=== PATIENT | female | born 1980 | race Caucasian/White ===

== ENCOUNTER 2018-08-27 12:14 | Inpatient (IN) | payer BC, MEDICAID ==
[2018-08-27 12:54] LABS: ABSOLUTE LYMPHOCYTES (AUTO) 1.6 10^3/uL (0.5-4.7); ABSOLUTE MONOCYTES (AUTO) 0.9 10^3/uL (0.1-1.4); ABSOLUTE NEUT (AUTO) 9.5 10^3/uL (1.7-8.2); BASOPHILS % (AUTO) 0.2 % (0-2); HEMATOCRIT 43.7 % (36.0-47.0); HEMOGLOBIN 15.2 g/dL (12.0-15.5); LYMPHOCYTES % (AUTO) 13.2 % (13-45); MEAN CORPUSCULAR HEMOGLOBIN 29.2 pg (27.0-33.4); MEAN CORPUSCULAR HGB CONC 34.8 g/dL (32.0-36.0); MEAN CORPUSCULAR VOLUME 84 fl (80-97); MONOCYTES % (AUTO) 7.5 % (3-13); PLATELET COUNT 265 10^3/uL (150-450); RED BLOOD COUNT 5.21 10^6/uL (3.72-5.28); RED CELL DISTRIBUTION WIDTH 14.4 % (11.5-14.0); SEGMENTED NEUTROPHILS % (AUTO) 79.1 % (42-78); TOTAL CELLS COUNTED % (AUTO) 100 %
[2018-08-27 13:21] LABS: ALANINE AMINOTRANSFERASE 31 U/L (9-52); ALBUMIN 4.9 g/dL (3.5-5.0); ALKALINE PHOSPHATASE 83 U/L (38-126); ANION GAP 17 (5-19); ASPARTATE AMINO TRANSFERASE 23 U/L (14-36); BILIRUBIN,DIRECT 0.3 mg/dL (0.0-0.4); BILIRUBIN,TOTAL 1.1 mg/dL (0.2-1.3); BLOOD UREA NITROGEN 13 mg/dL (7-20); CARBON DIOXIDE 22 mmol/L (22-30); CHLORIDE 99 mmol/L (98-107); GLUCOSE 85 mg/dL (75-110); POTASSIUM 3.2 mmol/L (3.6-5.0); SODIUM 138.2 mmol/L (137-145); TOTAL PROTEIN 8.4 g/dL (6.3-8.2)
[2018-08-27 13:26] LABS: ACETAMINOPHEN < 10 ug/mL (10-30); ALCOHOL < 10 mg/dL (NONE DETECTED); SALICYLATE < 1.0 mg/dL (2.0-20.0)
[2018-08-27] MEDS ORDERED: CHLORPROMAZINE HCL INJ 25 MG/1 ML AMPULE IM PRN (15:14)
[2018-08-27] MEDS ORDERED: BENZTROPINE MESYLATE INJ 2 MG/2 ML AMPULE IM SCH (15:15)
--- NOTE | 2018-08-27 15:17 | PSYCHOLOGICAL NOTE ---
Psych Note - Psych Note Date seen by psych provider: 08/27/18 Time seen by psych provider: 14:00 Psych Note: Reason for Consult: psychosis Patient arrived to [facility] ED via EMS for concerns of psychosis. Patient is randomly yelling out and cussing. Her thought processes are disorganized as evidenced by random comments that she puts together into one sentence. She is unable to carry on an organized and linear conversation. Patient is talking about "real people," "in her reality," colors, cheating, phone numbers and how every one has it in the world, notebook, codes, and a cat. Clinician spoke with patient's , Rishi, who reports the patient has no mental health history. He denies any knowledge of the patient ever having an episode like this in the previously. They have been 22 years. He continued to report that they do smoke pot however the last time he smoked pot was 12 hours ago and they shared with 2 other people and no one else is reacting in this way. He reports that she did receive 2 "blue pills" from a friend that was supposed to help sleep. He reports it is called Z MA that which purchased at [facility]. He discloses that she took the first pill at 4 PM on 08/25/2018. Her behavior started to become on that evening. He reports that she took a second pill at approximately 2 AM this morning. He states that she really started to amp up. He discloses significant concern as he is never witnessed anything like this and is scared for her. He reports the only other time she was out of his site was when she went to [place] to take a friend to the Social Security office. He reports he knows that friend does "pop pills" and is very concerned that she may have gotten something from her. All attempts at contacting that friend have been unsuccessful. Medication recommendations per [facility]'s contracted psychiatrist Dr Villa WILEY are as follows Thorazine 50mg every 6 hours as needed Cogentin 1mg daily Unspecified psychosis Impression\\plan: Patient is recommended for IVC petition. Patient is currently presenting manic with disorganized thought processes. Patient is currently in four-point restraints for her and staff safety. Patient will be reevaluated. Dr. Salguero was consulted to care management this patient; attending physicians in agreement with recommendations and disposition.
[2018-08-27] MEDS ORDERED: CHLORPROMAZINE HCL INJ 25 MG/1 ML AMPULE IM ONE (16:54)
[2018-08-27] MEDS: CHLORPROMAZINE HCL INJ 25 MG/1 ML AMPULE IM SCH ×3 (17:11→22:08)
--- NOTE | 2018-08-27 17:32 | ER Document Report ---
Entered by SITA LEO SCRIBE 08/27/18 1232 Acting as scribe for:JOSE MANUEL HYLTON MD ED Psych Disorder / Suicide - General Stated Complaint: PSYCH ISSUES Time Seen by Provider: 08/27/18 12:18 Primary Care Provider: LAURA NAVARRETE MD [Primary Care Provider] - Follow up as needed Mode of Arrival: Medic Information source: Patient Notes: 37 year old female that presents to the emergency department today with complaints of altered mental status. EMS reports that the patient has not slept in two days according to family. Family reports that the patient smokes marijuana and they suspect that she may have "gotten a bad batch". Patient was given 50mg of Benadryl IM and 5mg of haldol prior to arrival. Patient is agitated, manic, and uncooperative. - Related Data Allergies/Adverse Reactions: No Known Allergies Allergy (Unverified 04/19/11 13:13) Past Medical History - General Information source: [facility] Records - Social History Smoking Status: Former Smoker Drug Abuse: Marijuana Family History: Reviewed & Not Pertinent Psychiatric Medical History: Surgical Hx: Negative Review of Systems - Review of Systems -: Yes ROS unobtainable due to patient's medical condition - psychotic, agitated, uncooperative Physical Exam - Vital signs Vitals: Temp Pulse Resp BP Pulse Ox 98.0 F 100 16 147/74 H 100 08/27/18 13:10 08/27/18 13:10 08/27/18 13:10 08/27/18 13:10 08/27/18 13:10 - General General appearance: Other - agitated, uncooperative - HEENT Head: Normocephalic, Atraumatic Eyes: Normal Conjunctiva: Normal Extraocular movements intact: Yes - Respiratory Respiratory status: No respiratory distress Chest status: Nontender - Cardiovascular Rhythm: Tachycardia Heart sounds: Normal auscultation Murmur: No - Abdominal Inspection: Normal Distension: No distension Bowel sounds: Normal Tenderness: Nontender - Back Back: Normal, Nontender - Extremities General upper extremity: Normal inspection, Normal ROM. No: Edema General lower extremity: Normal inspection, Normal ROM. No: Edema - Neurological Neuro grossly intact: Yes Cognition: Normal Orientation: AAOx4 Livingston Coma Scale Eye Opening: Spontaneous Pastor Coma Scale Verbal: Oriented Pastor Coma Scale Motor: Obeys Commands Livingston Coma Scale Total: 15 - Psychological Associated symptoms: Agitated, Flight of ideas, Manic, Paranoid, Psychomotor agitation, Tangential speech - Skin Skin Temperature: Warm Skin Moisture: Dry Skin Color: Normal Notes: 1.5mm linear superficial laceration to right volar hands. 1.5cm medially to this there is a 1mm superficial puncture wound as well. Course - Re-evaluation Re-evalutation: 08/27/18 17:24 50 mg of Thorazine IM did not seem to have any effect at all in the patient. She was given an additional 50 mg Thorazine IM and her orders were changed to Thorazine 100 mg IM Q4 PRN. - Vital Signs Vital signs: Temp Pulse Resp BP Pulse Ox 98.0 F 100 16 147/74 H 100 08/27/18 13:10 08/27/18 13:10 08/27/18 13:10 08/27/18 13:10 08/27/18 13:10 - Laboratory Result Diagrams: 08/27/18 12:40 08/27/18 12:40 Laboratory results interpreted by me: 08/27/18 08/27/18 12:40 12:40 WBC 12.0 H RDW 14.4 H Seg Neutrophils % 79.1 H Absolute Neutrophils 9.5 H Potassium 3.2 L Total Protein 8.4 H Salicylates < 1.0 L Acetaminophen < 10 L - EKG Interpretation by Me EKG shows normal: Sinus rhythm, [place], Intervals, QRS Complexes, ST-T Waves Rate: Tachycardia - 116 Columbia/QRS: Left axis deviation Discharge - Discharge Clinical Impression: Acute hysterical psychosis Condition: Stable Disposition: PSYCH HOSP/UNIT Referrals: LAURA NAVARRETE MD [Primary Care Provider] - Follow up as needed I personally performed the services described in the documentation, reviewed and edited the documentation which was dictated to the scribe in my presence, and it accurately records my words and actions.
[2018-08-27 19:05] LABS: APPEARANCE,URINE SLIGHTLY-CLOUDY; BILIRUBIN,URINE NEGATIVE (NEGATIVE); COLOR,URINE YELLOW; GLUCOSE, URINE NEGATIVE (NEGATIVE); KETONES,URINE 80 mg/dL (NEGATIVE); LEUKOCYTE ESTERASE,URINE NEGATIVE (NEGATIVE); NITRITE,URINE NEGATIVE (NEGATIVE); PROTEIN,URINE 30 mg/dL (NEGATIVE); URINE SPECIFIC GRAVITY 1.023; UROBILINOGEN,URINE NEGATIVE mg/dL (<2.0)
[2018-08-27 19:18] LABS: URINE AMPHETAMINES SCREEN NEGATIVE; URINE BARBITURATES SCREEN NEGATIVE; URINE BENZODIAZEPINES SCREEN NEGATIVE; URINE COCAINE SCREEN NEGATIVE; URINE MARIJUANA (THC) SCREEN UNCONFIRMED POSITIVE; URINE METHADONE SCREEN NEGATIVE; URINE PHENCYCLIDINE SCREEN NEGATIVE
[2018-08-27] MEDS ORDERED: RINGERS SOLUTION,LACTATED 1,000 ML IV ONE (21:49)
[2018-08-27] MEDS ORDERED: LORAZEPAM INJ 2 MG/1 ML VIAL IV ONE (21:51)
[2018-08-27 22:37] LABS: ANION GAP 18 (5-19); BLOOD UREA NITROGEN 9 mg/dL (7-20); CALCIUM 9.8 mg/dL (8.4-10.2); CARBON DIOXIDE 20 mmol/L (22-30); CHLORIDE 101 mmol/L (98-107); GLUCOSE 92 mg/dL (75-110); SODIUM 139.1 mmol/L (137-145)
[2018-08-27 22:38] LABS: CREATINE KINASE 406 U/L (30-135)
[2018-08-27 22:54] LABS: FREE T3 4.74 pg/mL (2.77-5.27); FREE T4 (FREE THYROXINE) 1.8 ng/dL (0.78-2.19)
--- NOTE | 2018-08-27 23:00 | EKG REPORT ---
SEVERITY:- ABNORMAL ECG - SINUS TACHYCARDIA BORDERLINE LEFT AXIS DEVIATION ABNORMAL T, NON SPECIFIC : Confirmed by: Des Meza 27-Aug-2018 23:00:10
[2018-08-27 23:08] LABS: THYROID STIMULATING HORMONE 6.3 uIU/mL (0.47-4.68)
[2018-08-27] MEDS: POTASSI CL 20 MEQ/50 ML RIDER 20 MEQ/50 ML RTUPB IV SCH (23:29)
--- NOTE | 2018-08-27 23:30 | RADIOLOGY REPORT (SQ) ---
EXAM DESCRIPTION: CT HEAD WITHOUT IV CONTRAST COMPLETED DATE/TME: 08/27/2018 22:36 CLINICAL HISTORY: 37 years, Female, altered mental status COMPARISON: None. TECHNIQUE: 193 Images stored on PACS. All CT scanners at this facility use dose modulation, iterative reconstruction, and/or weight based dosing when appropriate to reduce radiation dose to as low as reasonably achievable (ALARA). [facility]: Dose Right [facility]: CareDose [facility]: Dose Right [facility]: Teradose 4D [facility]: AngleWare LIMITATIONS: None. FINDINGS: The globes are intact. The paranasal sinuses and mastoid air cells are unremarkable. No displaced or depressed skull fracture. No intra or extra-axial hemorrhage. CT is limited for evaluation of acute infarct. No CT evidence for large or territorial acute infarct. Vague area of diminished attenuation in the high right paramedian parietal region. This is isodense to CSF. This could reflect sequelae of old infarct. Other etiologies are not excluded, and follow-up with MRI may be of benefit. IMPRESSION: Nonspecific vague area of diminished attenuation in the high right parietal region. This could reflect sequelae of old vascular insult/infarct. Neoplastic etiology felt less likely. Consider follow-up with MRI. TECHNICAL DOCUMENTATION: Quality ID # 436: Final reports with documentation of one or more dose reduction techniques (e.g., Automated exposure control, adjustment of the mA and/or kV according to patient size, use of iterative reconstruction technique) copyright 2011 [employer]- All Rights Reserved
[2018-08-28] MEDS: POTASSI CL 20 MEQ/50 ML RIDER 20 MEQ/50 ML RTUPB IV SCH (00:53)
[2018-08-28] MEDS ORDERED: NORMAL SALINE 1000 ML 1,000 ML IV ONE (01:32)
[2018-08-28] MEDS ORDERED: KETAMINE HCL INJ 500 MG/10 ML VIAL IV ONE ×2 (01:44→03:10)
--- NOTE | 2018-08-28 02:46 | ER Document Report ---
Doctor's Note Notes: 08/28/18 02:42 Note: I was called to the room earlier in the evening because the patient had continued to be agitated and in four-point restraints. She had been in restraints for a number of hours in the emergency room. The story is as follows. This is a 37-year-old woman with no known psychiatric history that is reported to smoke marijuana fairly frequently. The reports are that she was having difficulty sleeping and that the neighbor had given her some unidentified pills. The patient subsequently became violent and was brought in by EMS for presumptive acute psychosis. Patient was given Thorazine during the day and placed in restraints and she required restraints most of the evening. On my evaluation, the patient is flushed, confused, agitated and appears acutely delirious. Patient's pupils are normal size and reactive to light. Her lungs are clear and her heart is rapid. She does have tachycardia anywhere between 101- 130. Patient has some bruising to the lower extremities. There is no petechial lesions or other rashes. While this can certainly be a new onset psychosis related to drug use, the concern is clearly for acute delirium. I discussed the case with poison control and they recommended sending urine out for synthetic hallucinogens. They did report that some of the synthetic nely lucinogens could last for days and could mimic acute psychosis. A CT of the head was done and it showed no acute process. There was a question of possible old infarct, the recommendation was for a follow-up MRI at some time. It does not appear that this is old finding is related to the patient's mental status change. The patient's T4 and T3 were relatively normal. Patient's CK was 404 initially and we will follow it. The patient was sedated with ketamine in order to do a spinal tap. I discussed the case with the hospitalist who is willing to admit the patient to the ICU for acute delirium and possible drug overdose.
[2018-08-28] MEDS: CHLORPROMAZINE HCL INJ 25 MG/1 ML AMPULE IM SCH (02:57)
[2018-08-28 02:59] LABS: GLUCOSE,CSF 55 mg/dL (40-70); PROTEIN,CSF 60 mg/dL (12-60)
[2018-08-28 03:20] LABS: APPEARANCE ALL TUBES CLEAR; COLOR ALL TUBES COLORLESS; CSF TUBE NUMBER 1; VOLUME TUBE 1 1.1 CC; VOLUME TUBE 2 1.1 CC; VOLUME TUBE 3 1.1 CC
[2018-08-28 03:21] LABS: CSF TOTAL VOLUME 4.3 CC
[2018-08-28 03:22] LABS: RED BLOOD CELL,CSF 45 /uL (0-10)
[2018-08-28 03:24] LABS: APPEARANCE ALL TUBES CLEAR; COLOR ALL TUBES COLORLESS; CSF TUBE NUMBER 4; WHITE BLOOD CELL,CSF 1 /uL (0-5)
[2018-08-28 03:25] LABS: CSF TOTAL VOLUME 4.3 CC; RED BLOOD CELL,CSF 1 /uL (0-10); VOLUME TUBE 1 1.1 CC; VOLUME TUBE 2 1.1 CC; VOLUME TUBE 3 1.1 CC; WHITE BLOOD CELL,CSF 0 /uL (0-5)
[2018-08-28 03:36] LABS: ABSOLUTE LYMPHOCYTES (AUTO) 1.7 10^3/uL (0.5-4.7); ABSOLUTE MONOCYTES (AUTO) 0.9 10^3/uL (0.1-1.4); ABSOLUTE NEUT (AUTO) 6.4 10^3/uL (1.7-8.2); BASOPHILS % (AUTO) 0.3 % (0-2); EOSINOPHILS % (AUTO) 0.3 % (0-6); HEMATOCRIT 38.9 % (36.0-47.0); HEMOGLOBIN 13.6 g/dL (12.0-15.5); LYMPHOCYTES % (AUTO) 18.6 % (13-45); MEAN CORPUSCULAR HEMOGLOBIN 29.8 pg (27.0-33.4); MEAN CORPUSCULAR VOLUME 85 fl (80-97); MONOCYTES % (AUTO) 10.2 % (3-13); PLATELET COUNT 222 10^3/uL (150-450); RED BLOOD COUNT 4.56 10^6/uL (3.72-5.28); RED CELL DISTRIBUTION WIDTH 14.3 % (11.5-14.0); SEGMENTED NEUTROPHILS % (AUTO) 70.6 % (42-78); TOTAL CELLS COUNTED % (AUTO) 100 %
[2018-08-28 03:39] LABS: ALANINE AMINOTRANSFERASE 29 U/L (9-52); ALBUMIN 4.1 g/dL (3.5-5.0); ALKALINE PHOSPHATASE 71 U/L (38-126); ASPARTATE AMINO TRANSFERASE 27 U/L (14-36); BILIRUBIN,DIRECT 0.2 mg/dL (0.0-0.4); BILIRUBIN,TOTAL 1.1 mg/dL (0.2-1.3); BLOOD UREA NITROGEN 9 mg/dL (7-20); CARBON DIOXIDE 22 mmol/L (22-30); CREATINE KINASE 428 U/L (30-135); GLUCOSE 81 mg/dL (75-110); POTASSIUM 3.6 mmol/L (3.6-5.0); SODIUM 141.2 mmol/L (137-145); TOTAL PROTEIN 7.2 g/dL (6.3-8.2)
[2018-08-28 03:41] LABS: ANION GAP 15 (5-19); CHLORIDE 104 mmol/L (98-107)
[2018-08-28] MEDS ORDERED: ONDANSETRON HCL INJ/PF 4 MG/2 ML SDV IV PRN (04:22)
[2018-08-28] MEDS ORDERED: GLUCAGON,HUMAN RECOMB 1 MG INJ SUBCUT PRN (04:22)
[2018-08-28] MEDS ORDERED: RINGERS SOLUTION,LACTATED 1,000 ML IV PRN (04:22)
[2018-08-28] MEDS ORDERED: DEXTROSE 40% GEL 15 GM TUBE PO PRN ×2 (04:22)
[2018-08-28] MEDS ORDERED: DEXTROSE 50%-WATER 25 GM/50 ML DISP.SYRIN IV PRN ×2 (04:22)
[2018-08-28 05:08] LABS: TROPONIN I < 0.012 ng/mL
[2018-08-28] MEDS: HEPARIN SOD (PORCINE) 5,000 UNIT/ML 1 ML SYRINGE SUBCUT SCH ×3 (05:55→21:50)
--- NOTE | 2018-08-28 06:38 | PDOC H&P ---
History of Present Illness Admission Date/PCP: 08/28/18 02:44 LAURA NAVARRETE MD Patient complains of: AMS History of Present Illness: BROOKE LOMAS is a 37 year old female who presented to the emergency room via EMS with acute altered mental status. Reports were that the patient had been feeling very tired and not sleeping well recently and was subsequently given 2 sleeping pills that were blue in color by a friend. She took her first 1 of these pills on the late afternoon of the and took her second pill on the radio interference expert of the . Following taking the second pill her pill status rapidly changed and was misinterpreted by EMS as acute psychosis initially, but was determined to be acute delirium after physician evaluation in the emergency room. Patient is delirious and unable to provide any input into her medical care. All information is obtained from the ER staff and other persons in the ER familiar with patient as well as her medical records. In the ER she was found to have no acute abnormalities on CT of the head, hypokalemia at 3.0 was noted as well as an elevated alkaline phosphatase. The remainder of her laboratory evaluation was essentially within normal limits. A lumbar puncture was performed with negative results. Due to the patient's acute delirium of unclear etiology she will be admitted for further evaluation and treatment. A specialized urine toxicology test was ordered and sent by the ER physician supervising ER portion of her care upon the recommendation of poison control. Past Medical History Cardiac Medical History: Denies: Coronary Artery Disease, Hypertension, Pulmonary Embolism, Heart Murmur Pulmonary Medical History: Denies: Asthma, Sleep Apnea, Tuberculosis EENT Medical History: Denies: Cataracts, Ears - No hearing deficits Neurological Medical History: Denies: Hemorrhagic CVA, Ischemic CVA, Seizures Endocrine Medical History: Denies: Diabetes Mellitus Type 1, Diabetes Mellitus Type 2, Hyperthyroidism, Hypothyroidism Renal/ Medical History: Denies: Chronic Kidney Disease, Nephrolithiasis Malignancy Medical History: Reports: None GI Medical History: Denies: Cirrhosis, Gastroesophageal Reflux Disease, Hepatitis, Hiatal Hernia Musculoskeltal Medical History: Denies: Arthritis, Fibromyalgia Skin Medical History: Denies: Eczema, Psoriasis Psychiatric Medical History: Reports: Substance Abuse Denies: Alcohol Dependency, Bipolar Disorder, Depression, Post Traumatic Stress Disorder, Tobacco Dependency Traumatic Medical History: Reports: None Hematology: Denies: Anemia, Bleeding Tendencies Infectious Medical History: Reports: None Past Surgical History Past Surgical History: Reports: Section - X 3, Tubal Ligation Social History Information Source: [facility] Records Lives with: Spouse/Significant other Smoking Status: Former Smoker Hx Recreational Drug Use: Yes Drugs: Marijuana Hx Prescription Drug Abuse: No - Advance Directive Resuscitation Status: Full Code Surrogate healthcare decision maker:: Spouse Family History Family History: Could not be obtained due to patient's delirium and no available medical records Parental Family History Reviewed: No Children Family History Reviewed: No Sibling(s) Family History Reviewed.: No Medication/Allergy Home Medications: Motrin 800 mg Tablet 800 mg PO Q8HP PRN 04/24/11 Percocet 5-325 mg Tablet 1 tab PO Q4HP PRN 04/24/11 Allergies/Adverse Reactions: No Known Allergies Allergy (Unverified 04/19/11 13:13) Review of Systems ROS unobtainable: Due to mental status - Acute delirium Physical Exam Vital Signs: Temp Pulse Resp BP Pulse Ox 97.6 F 108 H 15 144/80 H 100 08/27/18 22:43 08/27/18 21:30 08/28/18 03:00 08/28/18 02:36 08/28/18 03:00 Intake & Output 08/26/18 08/27/18 08/28/18 23:59 23:59 23:59 Intake Total 1000 85 Balance 1000 85 General appearance: PRESENT: disheveled, other - Delirious and obtunded secondary to sedation for lumbar puncture. Head exam: PRESENT: atraumatic, normocephalic Eye exam: PRESENT: conjunctiva pink. ABSENT: scleral icterus Ear exam: PRESENT: normal external ear exam. ABSENT: bleeding, drainage Mouth exam: PRESENT: dry mucosa, neck supple Neck exam: ABSENT: thyromegaly, tracheal deviation Respiratory exam: PRESENT: clear to auscultation reynaldo, symmetrical, unlabored Cardiovascular exam: PRESENT: RRR, tachycardia. ABSENT: clicks, gallop, rubs Pulses: PRESENT: normal radial pulses, normal dorsalis pedis pul Vascular exam: PRESENT: normal capillary refill. ABSENT: pallor GI/Abdominal exam: PRESENT: normal bowel sounds, soft Rectal exam: PRESENT: deferred Extremities exam: ABSENT: joint swelling, pedal edema Musculoskeletal exam: ABSENT: deformity, dislocation Neurological exam: PRESENT: altered - Obtunded, other - Delirious Psychiatric exam: PRESENT: other - Obtunded and delirious with no adequate means of assessment. Skin exam: PRESENT: dry, intact, warm. ABSENT: jaundice, rash, urticaria Results Laboratory Results: 08/28/18 03:05 08/28/18 03:05 08/27/18 08/27/18 08/27/18 12:40 12:40 12:40 WBC 12.0 H RBC 5.21 Hgb 15.2 Hct 43.7 MCV 84 MCH 29.2 MCHC 34.8 RDW 14.4 H Plt Count 265 Seg Neutrophils % 79.1 H Lymphocytes % 13.2 Monocytes % 7.5 Eosinophils % 0.0 Basophils % 0.2 Absolute Neutrophils 9.5 H Absolute Lymphocytes 1.6 Absolute Monocytes 0.9 Absolute Eosinophils 0.0 Absolute Basophils 0.0 Sodium 138.2 Potassium 3.2 L Chloride 99 Carbon Dioxide 22 Anion Gap 17 BUN 13 Creatinine 0.71 Est GFR ( Amer) > 60 Est GFR (Non-Af Amer) > 60 Glucose 85 Calcium 10.0 Magnesium Total Bilirubin 1.1 AST 23 ALT 31 Alkaline Phosphatase 83 Total Protein 8.4 H Albumin 4.9 TSH Free T4 Free T3 pg/mL Serum HCG, Qual NEGATIVE Urine Color Urine Appearance Urine pH Ur Specific [place] Urine Protein Urine Glucose (UA) Urine Ketones Urine Blood Urine Nitrite Ur Leukocyte Esterase Urine WBC (Auto) Urine RBC (Auto) Fluid Tube Number CSF Volume CSF Appearance CSF Color CSF WBC CSF RBC CSF Glucose CSF Total Protein 08/27/18 08/27/18 08/27/18 18:40 22:10 22:10 WBC RBC Hgb Hct MCV MCH MCHC RDW Plt Count Seg Neutrophils % Lymphocytes % Monocytes % Eosinophils % Basophils % Absolute Neutrophils Absolute Lymphocytes Absolute Monocytes Absolute Eosinophils Absolute Basophils Sodium 139.1 Potassium 3.0 L* Chloride 101 Carbon Dioxide 20 L Anion Gap 18 BUN 9 Creatinine 0.68 Est GFR ( Amer) > 60 Est GFR (Non-Af Amer) > 60 Glucose 92 Calcium 9.8 Magnesium Total Bilirubin AST ALT Alkaline Phosphatase Total Protein Albumin TSH 6.30 H Free T4 1.80 Free T3 pg/mL 4.74 Serum HCG, Qual Urine Color YELLOW Urine Appearance SLIGHTLY-CLOUDY Urine pH 5.0 Ur Specific [place] 1.023 Urine Protein 30 H Urine Glucose (UA) NEGATIVE Urine Ketones 80 H Urine Blood MODERATE H Urine Nitrite NEGATIVE Ur Leukocyte Esterase NEGATIVE Urine WBC (Auto) 2 Urine RBC (Auto) 1 Fluid Tube Number CSF Volume CSF Appearance CSF Color CSF WBC CSF RBC CSF Glucose CSF Total Protein 08/27/18 08/28/18 08/28/18 22:10 02:17 02:17 WBC RBC Hgb Hct MCV MCH MCHC RDW Plt Count Seg Neutrophils % Lymphocytes % Monocytes % Eosinophils % Basophils % Absolute Neutrophils Absolute Lymphocytes Absolute Monocytes Absolute Eosinophils Absolute Basophils Sodium Potassium Chloride Carbon Dioxide Anion Gap BUN Creatinine Est GFR ( Amer) Est GFR (Non-Af Amer) Glucose Calcium Magnesium 2.1 Total Bilirubin AST ALT Alkaline Phosphatase Total Protein Albumin TSH Free T4 Free T3 pg/mL Serum HCG, Qual Urine Color Urine Appearance Urine pH Ur Specific [place] Urine Protein Urine Glucose (UA) Urine Ketones Urine Blood Urine Nitrite Ur Leukocyte Esterase Urine WBC (Auto) Urine RBC (Auto) Fluid Tube Number 1 4 CSF Volume 4.3 4.3 CSF Appearance CLEAR CLEAR CSF Color COLORLESS COLORLESS CSF WBC 1 0 CSF RBC 45 1 CSF Glucose CSF Total Protein 08/28/18 08/28/18 08/28/18 02:17 03:05 03:05 WBC 9.0 RBC 4.56 Hgb 13.6 Hct 38.9 MCV 85 MCH 29.8 MCHC 35.0 RDW 14.3 H Plt Count 222 Seg Neutrophils % 70.6 Lymphocytes % 18.6 Monocytes % 10.2 Eosinophils % 0.3 Basophils % 0.3 Absolute Neutrophils 6.4 Absolute Lymphocytes 1.7 Absolute Monocytes 0.9 Absolute Eosinophils 0.0 Absolute Basophils 0.0 Sodium 141.2 Potassium 3.6 Chloride 104 Carbon Dioxide 22 Anion Gap 15 BUN 9 Creatinine 0.69 Est GFR ( Amer) > 60 Est GFR (Non-Af Amer) > 60 Glucose 81 Calcium 9.0 Magnesium Total Bilirubin 1.1 AST 27 ALT 29 Alkaline Phosphatase 71 Total Protein 7.2 Albumin 4.1 TSH Free T4 Free T3 pg/mL Serum HCG, Qual Urine Color Urine Appearance Urine pH Ur Specific [place] Urine Protein Urine Glucose (UA) Urine Ketones Urine Blood Urine Nitrite Ur Leukocyte Esterase Urine WBC (Auto) Urine RBC (Auto) Fluid Tube Number CSF Volume CSF Appearance CSF Color CSF WBC CSF RBC CSF Glucose 55 CSF Total Protein 60 08/27/18 08/28/18 22:10 03:05 Creatine Kinase 406 H 428 H Impressions: Head CT 08/27/18 22:36 IMPRESSION: Nonspecific vague area of diminished attenuation in the high right parietal region. This could reflect sequelae of old vascular insult/infarct. Neoplastic etiology felt less likely. Consider follow-up with MRI. TECHNICAL DOCUMENTATION: Quality ID # 436: Final reports with documentation of one or more dose reduction techniques (e.g., Automated exposure control, adjustment of the mA and/or kV according to patient size, use of iterative reconstruction technique) copyright 2011 [employer]- All Rights Reserved Assessment and Plan - Diagnosis (1) Acute delirium Is this a current diagnosis for this admission?: Yes Plan: Patient will be admitted to hospital and treated with symptomatic and supportive cares in the ICU as she is difficult to manage in a situation where she cannot be closely observed by a nurse who is not encumbered with a larger number of patients. Results of the patient's drug screen and lumbar puncture will be eagerly awaited. (2) Tachycardia Is this a current diagnosis for this admission?: Yes Plan: Patient be treated with IV fluid to increase her intravascular volume. Other treatment of tachycardia will be symptomatic and supportive unless a specific etiology can be identified. (3) Hypokalemia Is this a current diagnosis for this admission?: Yes Plan: Patient's hypokalemia will be treated with repletion via IV K riders. Her electrolytes will be monitored closely throughout the remainder of her hospital stay. (4) Elevated serum alkaline phosphatase level Is this a current diagnosis for this admission?: Yes Plan: Patient's alkaline phosphatase level be monitored throughout her hospital course. No specific therapy is planned at this time.[id number] - Time Time Spent with patient: 15-24 minutes Medications reviewed and adjusted accordingly: Yes Anticipated discharge: Home - Inpatient Certification Based on my medical assessment, after consideration of the patient's comorbidities, presenting symptoms, or acuity I expect that the services needed warrant INPATIENT care.: Yes I certify that my determination is in accordance with my understanding of Medicare's requirements for reasonable and necessary INPATIENT services [42 CFR 412.3e].: Yes Medical Necessity: Need Close Monitoring Due to Risk of Patient Decompensation, Need For IV Fluids, Need For Continuous Telemetry Monitoring, Need for Neurological Checks, Risk of Complication if Not Cared For in Hospital, Risk of Diagnosis Which Will Require Inpatient Eval/Care/Monitoring
[2018-08-28] MEDS ORDERED: FAMOTIDINE INJ/PF 20 MG/2 ML SDV IV SCH (10:00)
[2018-08-28 12:03] LABS: CREATINE KINASE MB 2.01 ng/mL (<4.55)
[2018-08-28 12:08] LABS: TROPONIN I < 0.012 ng/mL
--- NOTE | 2018-08-28 16:34 | PSYCHOLOGICAL NOTE ---
Psych Note - Psych Note Date seen by psych provider: 08/28/18 Time seen by psych provider: 07:20 Psych Note: Reason for Consult: psychosis Patient arrived to [facility] ED via EMS for concerns of psychosis. Check-in conducted with patient Patient is able to remember going to social security office the other day with her friend and was able to name a friend she went with. When asked if she received anything from that friend or took anything she reports that she got "fan" from her and " it is in the back of the truck." Patient denies drinking any tea other than raspberry tea. Clinician notes patient's previously identified the patient drinking Denise seal raspberry tea earlier the other day. Patient denies taking any other medication other than the "blue pill" that was previously disclosed to clinician by the patient's as ZMA that which purchased at [facility]. Patient quickly deteriorated and started to speak about being [place] and filing down the rabbit hole. She reports that she is upset that the rabbit she did her because he did not go down the rabbit hole like she thought he did. Medication recommendations per [facility]'s contracted psychiatrist Dr Villa WILEY are as follows Thorazine 50mg every 6 hours as needed Cogentin 1mg daily Unspecified psychosis Impression\\plan: Patient is recommended for continued IVC. Patient is currently presenting manic with disorganized thought processes. Patient is currently in four-point restraints for her and staff safety. Patient will be reevaluated. Dr. Salguero was consulted to care management this patient; attending physicians in agreement with recommendations and disposition.
[2018-08-28] MEDS ORDERED: DIPHENHYDRAMINE HCL 50 MG/ML VIAL IM PRN (17:05)
[2018-08-28] MEDS ORDERED: OLANZAPINE INJ/PF 10 MG SDV IM PRN (17:05)
--- NOTE | 2018-08-28 17:27 | PDOC PROGRESS REPORT ---
Subjective Progress Note for:: 08/28/18 Subjective:: Patient evaluated in the emergency room with her present. She continues to be disorganized, thinking seems to be jumbled, display symptoms of pressured speech, and irritability. reports patient's sleep has been anywhere from a few minutes to an hour since Friday. He denies previous episodes like this. He also denies patient has a psych history. Intermittently patient does seem in touch with reality she is alert and oriented x3. She is easily irritated. According her she is chronically paranoid. He is adamant that she does not do drugs, other than marijuana with him. She last used the ZMA pills from [facility] over 36 hours ago. It appears to be primarily a zinc magnesium pill. Patient and request that restraints be moved. Patient is requesting food as she has not eaten in 48 hours. Intermittently she does sleep for a few moments at a time in the hospital. does report a family history of schizo disorders, but unsure of bipolar. He reports she is normally mild-mannered. Reason For Visit: ACUTE DELIRIUM, HYPOKALEMIA, ELEVATED ALKALINE Physical Exam Vital Signs: Temp Pulse Resp BP Pulse Ox 98.6 F 145 H 18 171/113 H 99 08/28/18 11:18 08/28/18 14:00 08/28/18 11:01 08/28/18 11:01 08/28/18 11:01 Intake & Output 08/27/18 08/28/18 08/29/18 06:59 06:59 06:59 Intake Total 1085 1999 Balance 1085 1999 General appearance: PRESENT: no acute distress, other - At times cooperative. At times easily irritable. Head exam: PRESENT: atraumatic, normocephalic Eye exam: PRESENT: conjunctiva pink, EOMI, PERRLA. ABSENT: scleral icterus Ear exam: PRESENT: normal external ear exam Mouth exam: PRESENT: moist, tongue midline Respiratory exam: PRESENT: other - No appreciable wheeze, rhonchi, rales. Cardiovascular exam: PRESENT: +S1, +S2, tachycardia GI/Abdominal exam: PRESENT: normal bowel sounds, soft. ABSENT: distended, guarding, mass, organolmegaly, rebound, tenderness Extremities exam: PRESENT: other - Bilateral lower extremities 1+ edema. Symmetrical. Nonerythematous. Musculoskeletal exam: PRESENT: full ROM, normal inspection Neurological exam: PRESENT: CN II-XII grossly intact, other - Intermittently alert and oriented to person place time president. At times is altered. Gait not assessed. Psychiatric exam: PRESENT: agitated, manic, unusual affect, other - Irritable Focused psych exam: PRESENT: flight of ideas, restlessness, other - No obvious signs of internal stimuli. Chronically paranoid Results Laboratory Results: 08/28/18 03:05 08/28/18 03:05 08/27/18 08/27/18 08/27/18 18:40 22:10 22:10 WBC RBC Hgb Hct MCV MCH MCHC RDW Plt Count Seg Neutrophils % Lymphocytes % Monocytes % Eosinophils % Basophils % Absolute Neutrophils Absolute Lymphocytes Absolute Monocytes Absolute Eosinophils Absolute Basophils Sodium 139.1 Potassium 3.0 L* Chloride 101 Carbon Dioxide 20 L Anion Gap 18 BUN 9 Creatinine 0.68 Est GFR ( Amer) > 60 Est GFR (Non-Af Amer) > 60 Glucose 92 Calcium 9.8 Magnesium Total Bilirubin AST ALT Alkaline Phosphatase Ammonia Total Protein Albumin TSH 6.30 H Free T4 1.80 Free T3 pg/mL 4.74 Urine Color YELLOW Urine Appearance SLIGHTLY-CLOUDY Urine pH 5.0 Ur Specific [place] 1.023 Urine Protein 30 H Urine Glucose (UA) NEGATIVE Urine Ketones 80 H Urine Blood MODERATE H Urine Nitrite NEGATIVE Ur Leukocyte Esterase NEGATIVE Urine WBC (Auto) 2 Urine RBC (Auto) 1 Fluid Tube Number CSF Volume CSF Appearance CSF Color CSF WBC CSF RBC CSF Glucose CSF Total Protein 08/27/18 08/28/18 08/28/18 22:10 02:17 02:17 WBC RBC Hgb Hct MCV MCH MCHC RDW Plt Count Seg Neutrophils % Lymphocytes % Monocytes % Eosinophils % Basophils % Absolute Neutrophils Absolute Lymphocytes Absolute Monocytes Absolute Eosinophils Absolute Basophils Sodium Potassium Chloride Carbon Dioxide Anion Gap BUN Creatinine Est GFR ( Amer) Est GFR (Non-Af Amer) Glucose Calcium Magnesium 2.1 Total Bilirubin AST ALT Alkaline Phosphatase Ammonia Total Protein Albumin TSH Free T4 Free T3 pg/mL Urine Color Urine Appearance Urine pH Ur Specific [place] Urine Protein Urine Glucose (UA) Urine Ketones Urine Blood Urine Nitrite Ur Leukocyte Esterase Urine WBC (Auto) Urine RBC (Auto) Fluid Tube Number 1 4 CSF Volume 4.3 4.3 CSF Appearance CLEAR CLEAR CSF Color COLORLESS COLORLESS CSF WBC 1 0 CSF RBC 45 1 CSF Glucose CSF Total Protein 08/28/18 08/28/18 08/28/18 02:17 03:05 03:05 WBC 9.0 RBC 4.56 Hgb 13.6 Hct 38.9 MCV 85 MCH 29.8 MCHC 35.0 RDW 14.3 H Plt Count 222 Seg Neutrophils % 70.6 Lymphocytes % 18.6 Monocytes % 10.2 Eosinophils % 0.3 Basophils % 0.3 Absolute Neutrophils 6.4 Absolute Lymphocytes 1.7 Absolute Monocytes 0.9 Absolute Eosinophils 0.0 Absolute Basophils 0.0 Sodium 141.2 Potassium 3.6 Chloride 104 Carbon Dioxide 22 Anion Gap 15 BUN 9 Creatinine 0.69 Est GFR ( Amer) > 60 Est GFR (Non-Af Amer) > 60 Glucose 81 Calcium 9.0 Magnesium Total Bilirubin 1.1 AST 27 ALT 29 Alkaline Phosphatase 71 Ammonia Total Protein 7.2 Albumin 4.1 TSH Free T4 Free T3 pg/mL Urine Color Urine Appearance Urine pH Ur Specific [place] Urine Protein Urine Glucose (UA) Urine Ketones Urine Blood Urine Nitrite Ur Leukocyte Esterase Urine WBC (Auto) Urine RBC (Auto) Fluid Tube Number CSF Volume CSF Appearance CSF Color CSF WBC CSF RBC CSF Glucose 55 CSF Total Protein 60 08/28/18 11:25 WBC RBC Hgb Hct MCV MCH MCHC RDW Plt Count Seg Neutrophils % Lymphocytes % Monocytes % Eosinophils % Basophils % Absolute Neutrophils Absolute Lymphocytes Absolute Monocytes Absolute Eosinophils Absolute Basophils Sodium Potassium Chloride Carbon Dioxide Anion Gap BUN Creatinine Est GFR ( Amer) Est GFR (Non-Af Amer) Glucose Calcium Magnesium Total Bilirubin AST ALT Alkaline Phosphatase Ammonia 12.5 Total Protein Albumin TSH Free T4 Free T3 pg/mL Urine Color Urine Appearance Urine pH Ur Specific [place] Urine Protein Urine Glucose (UA) Urine Ketones Urine Blood Urine Nitrite Ur Leukocyte Esterase Urine WBC (Auto) Urine RBC (Auto) Fluid Tube Number CSF Volume CSF Appearance CSF Color CSF WBC CSF RBC CSF Glucose CSF Total Protein 08/27/18 08/28/18 08/28/18 22:10 03:05 03:05 Creatine Kinase 406 H 428 H CK-MB (CK-2) 2.30 Troponin I < 0.012 08/28/18 08/28/18 11:25 11:25 Creatine Kinase 394 H CK-MB (CK-2) 2.01 Troponin I < 0.012 Impressions: Head CT 08/27/18 22:36 IMPRESSION: Nonspecific vague area of diminished attenuation in the high right parietal region. This could reflect sequelae of old vascular insult/infarct. Neoplastic etiology felt less likely. Consider follow-up with MRI. TECHNICAL DOCUMENTATION: Quality ID # 436: Final reports with documentation of one or more dose reduction techniques (e.g., Automated exposure control, adjustment of the mA and/or kV according to patient size, use of iterative reconstruction technique) copyright 2011 [employer]- All Rights Reserved Assessment and Plan - Diagnosis (1) Hypertension Qualifiers: Hypertension type: unspecified Qualified Code(s): I10 - Essential (primary) hypertension Is this a current diagnosis for this admission?: Yes (2) Psychosis Qualifiers: Psychosis type: unspecified psychosis type Qualified Code(s): F29 - Unspecified psychosis not due to a substance or known physiological condition Is this a current diagnosis for this admission?: Yes (3) Tachycardia Is this a current diagnosis for this admission?: Yes (5) Psychosis Qualifiers: Psychosis type: unspecified psychosis type Qualified Code(s): F29 - Unsp ecified psychosis not due to a substance or known physiological condition Is this a current diagnosis for this admission?: Yes - Time Time Spent with patient: 25-34 minutes Medications reviewed and adjusted accordingly: Yes Anticipated discharge: Home - Inpatient Certification Based on my medical assessment, after consideration of the patient's comorb idities, presenting symptoms, or acuity I expect that the services needed warrant INPATIENT care.: Yes I certify that my determination is in accordance with my understanding of Medicare's requirements for reasonable and necessary INPATIENT services [42 CFR 412.3e].: Yes - Plan Summary Plan Summary: 1. Unspecified psychosis, suspected over delirium. This could be the patient's first gustavo episode. Unsure of her menstrual status. She is moving into the second portion of the bimodal distribution of bipolar for females. Possible family history of schizophrenia. She does seem to be chronically paranoid, and consideration could be given to schizoaffective bipolar type. Defer proper diagnosis and further management to outpatient psychiatry. And patient will start on Respirdal 1 mg p.o. twice daily for acute gustavo symptoms. Risperdal should be less likely to cause weight gain. We will order as needed IM Zyprexa and Benadryl for acute agitation and EPS prevention. Timeframe and medication type seem a little long/wrong for current symptoms. 2. Tachycardia/dehydration: Could be related to psychosis in addition to dehydration. Since her blood pressure last measured systolically in the 170s, we will stop the IV fluids. We will asked nursing to recheck blood pressure. Suspect this will fall down closer to normal level. Place patient on a cardiac diet. 3. Hypertension: See above. Will consider medication options if needed. 4 elevated CK: Again consistent with psychosis. Trending down. Monitoring Patient has been removed from four-point restraints. She has been provided a bedside commode. These things read on all her is present, this seems to help keep her calm. She has also been started on a diet. She seems alert and aware enough to eat.
[2018-08-28 18:58] LABS: CREATINE KINASE MB 1.75 ng/mL (<4.55)
[2018-08-28 18:59] LABS: TROPONIN I < 0.012 ng/mL
[2018-08-28] MEDS: RISPERIDONE 1 MG TABLET PO SCH (21:50)
--- NOTE | 2018-08-28 23:09 | EKG REPORT ---
SEVERITY:- BORDERLINE ECG - SINUS TACHYCARDIA BORDERLINE T ABNORMALITIES, DIFFUSE LEADS : Confirmed by: Des Meza 28-Aug-2018 23:08:31
[2018-08-29] MEDS ORDERED: HALOPERIDOL LACTATE INJ 5 MG/1 ML VIAL IM PRN (01:58)
[2018-08-29] MEDS: HEPARIN SOD (PORCINE) 5,000 UNIT/ML 1 ML SYRINGE SUBCUT SCH ×3 (06:03→21:48)
[2018-08-29 08:38] LABS: ABSOLUTE EOSINOPHILS # (AUTO) 0.1 10^3/uL (0.0-0.6); ABSOLUTE LYMPHOCYTES (AUTO) 1.9 10^3/uL (0.5-4.7); ABSOLUTE MONOCYTES (AUTO) 0.7 10^3/uL (0.1-1.4); ABSOLUTE NEUT (AUTO) 5.1 10^3/uL (1.7-8.2); BASOPHILS % (AUTO) 0.6 % (0-2); EOSINOPHILS % (AUTO) 1.5 % (0-6); HEMOGLOBIN 13.3 g/dL (12.0-15.5); LYMPHOCYTES % (AUTO) 23.9 % (13-45); MEAN CORPUSCULAR HEMOGLOBIN 29.2 pg (27.0-33.4); MEAN CORPUSCULAR HGB CONC 34.2 g/dL (32.0-36.0); MEAN CORPUSCULAR VOLUME 85 fl (80-97); PLATELET COUNT 201 10^3/uL (150-450); RED BLOOD COUNT 4.56 10^6/uL (3.72-5.28); TOTAL CELLS COUNTED % (AUTO) 100 %; WHITE BLOOD COUNT 7.9 10^3/uL (4.0-10.5)
[2018-08-29 08:53] LABS: ALANINE AMINOTRANSFERASE 28 U/L (9-52); ALBUMIN 3.8 g/dL (3.5-5.0); ALKALINE PHOSPHATASE 68 U/L (38-126); ANION GAP 13 (5-19); ASPARTATE AMINO TRANSFERASE 23 U/L (14-36); BILIRUBIN,DIRECT 0.1 mg/dL (0.0-0.4); BILIRUBIN,TOTAL 0.9 mg/dL (0.2-1.3); BLOOD UREA NITROGEN 3 mg/dL (7-20); CARBON DIOXIDE 21 mmol/L (22-30); CHLORIDE 104 mmol/L (98-107); CHOLESTEROL 124.72 mg/dL (0-200); POTASSIUM 3.4 mmol/L (3.6-5.0); SODIUM 138.3 mmol/L (137-145); TOTAL PROTEIN 6.9 g/dL (6.3-8.2); TRIGLYCERIDES 72 mg/dL (<150)
[2018-08-29 09:03] LABS: DIRECT LDL 70 mg/dL (<100)
[2018-08-29 09:12] LABS: GLUCOSE 69 mg/dL (75-110)
[2018-08-29] MEDS: RISPERIDONE 1 MG TABLET PO SCH (11:20)
--- NOTE | 2018-08-29 12:00 | PSYCHOLOGICAL NOTE ---
Psych Note - Psych Note Date seen by psych provider: 08/29/18 Time seen by psych provider: 09:05 Psych Note: Reason for Consult: psychosis Patient arrived to [facility] ED via EMS for concerns of psychosis. Check-in conducted with patient Patient has significant improvement and is able to have a conversation with clinician. Patient is noted to have some tangential thought processes however is able to appropriately answer questions. Patient states again that she did no t take any other medication other than pills she received from friends from [facility]. She reports that the bottle was red and white and was told that it would help her sleep. She states that she thinks that she took both of the pills (this has been confirmed by her ). Patient continued to discuss dream and "my reality," and easily loses track of conversation. She reports that she has been vaping for approximately 1 year and normally goes to [facility] [employer] vape shop and gets "[place] squares, candycane." She reports that she used to do vape [place] however once moving over to candycane she did not like the taste anymore. She reports that she was vaping oil from [employer] that was mailed to them. She denies any knowledge of CBD oil. She continued to state that she did stop vaping recently because she did not want to do it anymore however then picked it back up. Patient was unable to provide time frames or dates other than stating it was recent. 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 Patient has greatly improved; however, still is demonstrating some tangential thought processes. Patient disclosed today that she had been vaping for 1 year, stopped and recently restarted again. There is significant concern on what the patient was vaping, as she reports they were receiving THC oil in the mail from [employer]. 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 On set of symptoms was notably quick (ie no noted odd behaviours, acting out of character, odd speech patterns etc building up to event) which reports indicate was after taking a "blue pill" that the patient believes to be ZMA. It is noted the patient does have some family history of mental health; however, patient denies personal mental health history. Patient and patient's , whom she has been to for over 20 years, deny any previous events of gustavo or similar behaviors to current event. Medication recommendations have been provided. Patient will be reevaluated. Dr. Salguero was consulted to care management this patient; attending physicians in agreement with recommendations and disposition.
[2018-08-29] MEDS ORDERED: OLANZAPINE INJ/PF 10 MG SDV IM PRN (14:39)
[2018-08-29] MEDS ORDERED: HALOPERIDOL LACTATE INJ 5 MG/1 ML VIAL IV PRN (14:39)
--- NOTE | 2018-08-29 14:48 | PDOC PROGRESS REPORT ---
Addendum entered and electronically signed by JOSE MARTIN PALMER PA-C 08/30/18 19:21: Provider Note Provider Note: Psych would like to keep the patient IVC for another 24 hours. Discussion had with the patient about starting or taking as needed medications for elevated heart rate or blood pressure is against this. Seems that the heart rate shoots up when she halves some anxiety. She reports this can be awakening from disturbing dreams. She does not want to consider medications that may help this. Risks and benefits have been discussed she is very concrete in her thinking and remains paranoid Original Note: Subjective Progress Note for:: 08/29/18 Subjective:: Patient is less psychotic than yesterday. Disorganized. She continues to be paranoid. No obvious visual or auditory hallucinations. No signs of internal stimuli. She is much more able to talk in a logical and mostly linear fashion. She remains distractible, but redirectable. Lengthy discussion had with psychiatrist. We will follow their recommendations. Patient disclosed more information about the use of vaping of THC oil from [place]. Patient is not in restraints, but does have a sitter. is not present. Reason For Visit: ACUTE DELIRIUM, HYPOKALEMIA, ELEVATED ALKALINE Physical Exam Vital Signs: Temp Pulse Resp BP Pulse Ox 98.3 F 98 17 141/80 H 98 08/29/18 12:00 08/29/18 12:00 08/29/18 12:00 08/29/18 12:00 08/29/18 12:00 Intake & Output 08/28/18 08/29/18 08/30/18 06:59 06:59 06:59 Intake Total 1085 2320 Output Total 600 Balance 1085 1720 Weight 82.1 kg General appearance: PRESENT: no acute distress, well-developed, well-nourished Head exam: PRESENT: atraumatic, normocephalic Eye exam: PRESENT: conjunctiva pink, EOMI, PERRLA. ABSENT: scleral icterus Ear exam: PRESENT: normal external ear exam Mouth exam: PRESENT: moist, tongue midline Respiratory exam: PRESENT: other - No appreciable wheeze, rhonchi, rales. Cardiovascular exam: PRESENT: RRR, +S1, +S2 Vascular exam: PRESENT: normal capillary refill GI/Abdominal exam: PRESENT: normal bowel sounds, soft. ABSENT: distended, guarding, mass, organolmegaly, rebound, tenderness Extremities exam: PRESENT: other - Trace edema bilateral lower extremities. Tattoos on her feet. Neurological exam: PRESENT: alert, awake, oriented to person, oriented to place, oriented to time, oriented to situation, CN II-XII grossly intact, other - Gait not assessed. Psychiatric exam: PRESENT: unusual affect, other - Denies suicidal or homicidal ideations. Continues to be easily distracted and at times circumstantial. Focused psych exam: PRESENT: paranoid Results Laboratory Results: 08/29/18 08:01 08/29/18 08:01 08/29/18 08/29/18 08:01 08:01 WBC 7.9 RBC 4.56 Hgb 13.3 Hct 39.0 MCV 85 MCH 29.2 MCHC 34.2 RDW 14.0 Plt Count 201 Seg Neutrophils % 65.0 Lymphocytes % 23.9 Monocytes % 9.0 Eosinophils % 1.5 Basophils % 0.6 Absolute Neutrophils 5.1 Absolute Lymphocytes 1.9 Absolute Monocytes 0.7 Absolute Eosinophils 0.1 Absolute Basophils 0.0 Sodium 138.3 Potassium 3.4 L Chloride 104 Carbon Dioxide 21 L Anion Gap 13 BUN 3 L Creatinine 0.60 Est GFR ( Amer) > 60 Est GFR (Non-Af Amer) > 60 Glucose 69 L Calcium 9.0 Magnesium 2.0 Total Bilirubin 0.9 AST 23 ALT 28 Alkaline Phosphatase 68 Total Protein 6.9 Albumin 3.8 Triglycerides 72 Cholesterol 124.72 LDL Cholesterol Direct 70 VLDL Cholesterol 14.0 HDL Cholesterol 46 08/27/18 08/28/18 08/28/18 22:10 03:05 03:05 Creatine Kinase 406 H 428 H CK-MB (CK-2) 2.30 Troponin I < 0.012 08/28/18 08/28/18 08/28/18 11:25 11:25 18:15 Creatine Kinase 394 H 348 H CK-MB (CK-2) 2.01 Troponin I < 0.012 08/28/18 18:15 Creatine Kinase CK-MB (CK-2) 1.75 Troponin I < 0.012 Impressions: Head CT 08/27/18 22:36 IMPRESSION: Nonspecific vague area of diminished attenuation in the high right parietal region. This could reflect sequelae of old vascular insult/infarct. Neoplastic etiology felt less likely. Consider follow-up with MRI. TECHNICAL DOCUMENTATION: Quality ID # 436: Final reports with documentation of one or more dose reduction techniques (e.g., Automated exposure control, adjustment of the mA and/or kV according to patient size, use of iterative reconstruction technique) copyright 2011 [employer]- All Rights Reserved Assessment and Plan - Diagnosis (1) Hypertension Qualifiers: Hypertension type: unspecified Qualified Code(s): I10 - Essential (primary) hypertension Is this a current diagnosis for this admission?: Yes (2) Psychosis Qualifiers: Psychosis type: unspecified psychosis type Qualified Code(s): F29 - Unspecified psychosis not due to a substance or known physiological condition Is this a current diagnosis for this admission?: Yes (3) Tachycardia Is this a current diagnosis for this admission?: Yes - Time Time Spent with patient: 15-24 minutes Medications reviewed and adjusted accordingly: Yes Anticipated discharge: Home - Inpatient Certification Based on my medical assessment, after consideration of the patient's comorbidities, presenting symptoms, or acuity I expect that the services needed warrant INPATIENT care.: Yes I certify that my determination is in accordance with my understanding of Medicare's requirements for reasonable and necessary INPATIENT services [42 CFR 412.3e].: Yes - Plan Summary Plan Summary: 1 unspecified psychosis: After lengthy discussion with psychiatry, it seems that substance-induced and/or withdrawal psychosis may be the most likely diagnosis. Seems symptoms of withdrawal from 2 stools can appears somewhat like gustavo. Limited family history of psychiatric illness to schizo disorders. No history of bipolar reported. Patient does not have a history of mental illness that is known at this time. We will proceed with psychiatric recommendations for medications as listed below -Haldol 5 mg every 12 hours as needed agitation -Cogentin 1 mg daily -Zyprexa IM 5 mg every 8 hours as needed for agitation 2. Tachycardia: Thought to be related to dehydration. Improving. Oral intake is improving. Dehydration improved with IV fluids. 3. Elevated BP and CK: Improved. Both can be attributed to acute psychosis. disposition: monitor for 1-2 more days and expect d/c. need o/p psych f/u. psych input appreciated.
[2018-08-29] MEDS ORDERED: HALOPERIDOL 5 MG TABLET PO PRN (18:28)
[2018-08-29] MEDS: POTASSIUM CHLORIDE 20 MEQ/15 ML UDCUP PO SCH (21:51)
[2018-08-30] MEDS: HEPARIN SOD (PORCINE) 5,000 UNIT/ML 1 ML SYRINGE SUBCUT SCH ×2 (06:18→14:32)
[2018-08-30 07:38] LABS: ABSOLUTE EOSINOPHILS # (AUTO) 0.2 10^3/uL (0.0-0.6); ABSOLUTE MONOCYTES (AUTO) 0.7 10^3/uL (0.1-1.4); ABSOLUTE NEUT (AUTO) 3.8 10^3/uL (1.7-8.2); BASOPHILS % (AUTO) 0.4 % (0-2); EOSINOPHILS % (AUTO) 2.9 % (0-6); HEMOGLOBIN 14.2 g/dL (12.0-15.5); LYMPHOCYTES % (AUTO) 29.7 % (13-45); MEAN CORPUSCULAR HEMOGLOBIN 29.3 pg (27.0-33.4); MEAN CORPUSCULAR HGB CONC 34.6 g/dL (32.0-36.0); MEAN CORPUSCULAR VOLUME 85 fl (80-97); MONOCYTES % (AUTO) 10.9 % (3-13); PLATELET COUNT 230 10^3/uL (150-450); RED BLOOD COUNT 4.83 10^6/uL (3.72-5.28); RED CELL DISTRIBUTION WIDTH 14.1 % (11.5-14.0); SEGMENTED NEUTROPHILS % (AUTO) 56.1 % (42-78); TOTAL CELLS COUNTED % (AUTO) 100 %; WHITE BLOOD COUNT 6.7 10^3/uL (4.0-10.5)
[2018-08-30 07:47] LABS: ALANINE AMINOTRANSFERASE 25 U/L (9-52); ALKALINE PHOSPHATASE 71 U/L (38-126); ANION GAP 12 (5-19); ASPARTATE AMINO TRANSFERASE 21 U/L (14-36); BILIRUBIN,DIRECT 0.2 mg/dL (0.0-0.4); BILIRUBIN,TOTAL 0.6 mg/dL (0.2-1.3); BLOOD UREA NITROGEN 2 mg/dL (7-20); CALCIUM 9.4 mg/dL (8.4-10.2); CARBON DIOXIDE 27 mmol/L (22-30); CHLORIDE 101 mmol/L (98-107); GLUCOSE 94 mg/dL (75-110); POTASSIUM 3.3 mmol/L (3.6-5.0); SODIUM 139.7 mmol/L (137-145); TOTAL PROTEIN 7.3 g/dL (6.3-8.2)
[2018-08-30] MEDS: BENZTROPINE MESYLATE 1 MG TABLET PO SCH (11:24)
[2018-08-30] MEDS: POTASSIUM CHLORIDE 20 MEQ/15 ML UDCUP PO SCH (11:47)
--- NOTE | 2018-08-30 14:08 | PSYCHOLOGICAL NOTE ---
Psych Note - Psych Note Date seen by psych provider: 08/30/18 Time seen by psych provider: 09:00 - Re evaluation from [id number]. Mother at bedside. Psych Note: Reason for Consult: 3rd Re evaluation, IVC, Substance induced psychosis Contact Permissions: Mother Nell at bedside. Rishi [phone] listed on dry Breathometer board Patient is a 37 year old female who is on IVC for substance induced psychosis and admitted to hospitalist services. Today she identified "I was trying to finish too many tasks between the house (needed cleaned, taking care of 3 children) and the business (6 estimates), I got so overwhelmed, I was stressed out but was doing my best to keep working at it but my got upset that he needed to redirect me to keep me from being/getting distracted. She became tearful and then said "He needs to share more in the responsibilities, I have thought about leaving my of 22 years and I think this triggered a melt down." Patient reported "I just wanted to clean the sink so I wouldn't be so stressed out." She maintained she slept the night prior to coming to hospital and a couple days prior. She commented "I slept on the broken bed and slept on the couch." She reported she took a big pill that was her favorite color blue and was supposed to be ZMA (Zinc and Magnesium). She stated she had never taken that pill before but has taken both Zinc and Magnesium separately. She mentioned "I started talking about deeper stuff, like the End of Days and Odette Brown." She denied being prescribed psychiatric medications and commented "I will never take them I don't like medicine." She admitted she "used to smoke marijuana but gave that up." She stated "i don't like alcohol so don't drink." She went on a tangent about "the Theory in her mind, about Heaven and Earth" then stated "I was like the Mocking Feliciano in Hunger Games where it broke through the glass ceiling." She also had a tangent about [place] and then vaccinations. She reported difficulty sleeping in the hospital, waking up every 3 minutes or so, dreams waking her up, all the noise (machines beeping) and sick people. She said "I want to go home and sleep." She reported "my mind is usually working fast but I have control over it, this was the first time I couldn't control or slow it down." She talked about crystals and beads which attests to her spirituality. She inquired about talking with a Psychologist (therapy at discharge). Patient continued to have some tangential thinking however these things seem to be related to her spirituality. 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 She was able to answer questions and interact with dialogue conversation. There were things she did not remember (mother talking to patient on the phone when visited). Mother at bedside identified "when I got to her house after getting phone call from her she was already full blown." She was trying to clean the sink but took the dish soap down the cooley. Then she was in the computer room taking all the stuff off the shelves and making piles on the floor. She stated she had been informed patient did not sleep the night prior to coming to the ED. She stated patient "is better than she has been the last few days, she is coherent, not saying too much off the wall stuff." She noted patient had been "saying some things and thinking was way out there, she had weird things to say and had tried to take all her clothes off." Mother identified she called patient before going over to the hours and patient threw her phone (several minutes later patient noted she had thrown her phone because she was trying to break the bowl not the phone). Attending natalia reported when visited yesterday she was right there for their interactions. He had commented many times "that is the old Kathryn." However he still noted a few times where it wasn't her. She stated patient seems to be into conspiracy theories. She noted patient has 3 children, the 14 year old has Autism and had been vaccinated, her other 2 children were not vaccinated as a result because she felt the vaccination led to the Autism adn her first night in the hospital there was something on TV about making vaccinations mandatory. Diagnosis: Substance Induced Psychosis Impression/Plan: Recommendation to maintain IVC. Patient has continued to improve each day with today being the best day so far per medical staff and mother. Want to ensure the trend continues to improve. Will reassess tomorrow. Will check in with both mother and tomorrow to ensure improvement and getting closer to baseline. Consulted with Dr. Salguero regarding the management and care of patient. Attending Hospitalist made aware of recommendations.
[2018-08-31] MEDS: HEPARIN SOD (PORCINE) 5,000 UNIT/ML 1 ML SYRINGE SUBCUT SCH (00:13)
[2018-08-31 03:06] LABS: ABSOLUTE EOSINOPHILS # (AUTO) 0.2 10^3/uL (0.0-0.6); ABSOLUTE MONOCYTES (AUTO) 0.7 10^3/uL (0.1-1.4); HEMOGLOBIN 14.4 g/dL (12.0-15.5); LYMPHOCYTES % (AUTO) 28.6 % (13-45); TOTAL CELLS COUNTED % (AUTO) 100 %
[2018-08-31 03:13] LABS: BASOPHILS % (AUTO) 0.7 % (0-2); HEMATOCRIT 41.7 % (36.0-47.0); MEAN CORPUSCULAR HEMOGLOBIN 29.3 pg (27.0-33.4); MEAN CORPUSCULAR HGB CONC 34.5 g/dL (32.0-36.0); MEAN CORPUSCULAR VOLUME 85 fl (80-97); MONOCYTES % (AUTO) 10.3 % (3-13); PLATELET COUNT 260 10^3/uL (150-450); RED BLOOD COUNT 4.91 10^6/uL (3.72-5.28); RED CELL DISTRIBUTION WIDTH 14.4 % (11.5-14.0); SEGMENTED NEUTROPHILS % (AUTO) 57.4 % (42-78)
[2018-08-31 03:34] LABS: ALANINE AMINOTRANSFERASE 25 U/L (9-52); ALBUMIN 4.2 g/dL (3.5-5.0); ALKALINE PHOSPHATASE 70 U/L (38-126); ANION GAP 12 (5-19); ASPARTATE AMINO TRANSFERASE 18 U/L (14-36); BILIRUBIN,DIRECT 0.2 mg/dL (0.0-0.4); BILIRUBIN,TOTAL 0.5 mg/dL (0.2-1.3); BLOOD UREA NITROGEN 6 mg/dL (7-20); CALCIUM 9.8 mg/dL (8.4-10.2); CARBON DIOXIDE 26 mmol/L (22-30); CHLORIDE 102 mmol/L (98-107); GLUCOSE 103 mg/dL (75-110); SODIUM 140.4 mmol/L (137-145); TOTAL PROTEIN 7.5 g/dL (6.3-8.2)
[2018-08-31 03:47] LABS: POTASSIUM 4.3 mmol/L (3.6-5.0)
[2018-08-31] MEDS: BENZTROPINE MESYLATE 1 MG TABLET PO SCH (10:14)
--- NOTE | 2018-08-31 14:51 | PSYCHOLOGICAL NOTE ---
Psych Note - Psych Note Date seen by psych provider: 08/31/18 Time seen by psych provider: 12:50 - Re evaluation from [id number] Psych Note: Reason for Consult: 4th Re evaluation, IVC, Substance induced psychosis Contact Permissions: Mother Nell. Rishi [phone] listed on dry [employer] board Patient is a 37 year old female who is on IVC for substance induced psychosis and admitted to hospitalist services. today she stated "I am much much better, I had some good sleep at 45 minute increments instead of waking up every 3 minutes." She reported she identified the substance she took after going on to the [facility] website, "it is called ZMA and comes in a red and white bottle, but a customer gave it to me to give to my for sleep, it sat on the dresser for 2-3 days, I was curious and I took it." She reported "it consists of Zinc, Magnesium and B6, she thought it was a natural supplement which she appreciated and uses since she is holistic and is a [employer], but this was their won blend." She reported she may file a report with the FDA. She denied using CBD oil. When confronted she stated "previously we used some but it was actually high in THC versus hemp or CBD." She stated "I quit marijuana that night and the vape oil I will not use anymore." She talked about looking for help with the home and business by the time summer gets here. She stated her cleaned up some of the house while she has been in the hospital. She identified "i want to shower, shave my legs, pair up the sox my left me and clean my office." She commented "one thing at a time." Patient was alert and oriented to self, person, place, time and situation. Mood was more euthymic with congruent affect. She was less anxious as evidenced by relaxed body language and demeanor. She denied SI/HI. She did not appear to be responding to internal stimuli as evidenced by fair eye contact, answering questions appropriately when addressed, staying on topic and carrying on dialogue conversation. Thought processes were more linear and organized, less ta ngential. Conversational speech had slowed down in rate to almost within normal limits (had previously been pressured) and tone and prosody were within normal limits. Intellectual abilities are estimated to be average. Insight, judgment and impulse control were fair was evidenced by less manic state (no pressured speech, no tangential thinking, relaxed body language and demeanor). Attending vikkiter stated had been present earlier. She noted he said patient was much better. She reported she has been sitter for patient all but 1- 2 days she was in the hospital and today is her best day. Diagnosis: Substance Induced Psychosis Medication recommendations made by the psychiatric medical provider, Dr. Villa MD., includes: No discharge medications. They were only utilized while in the hospital to aid in stabilization and making patient more manageable. Patient prefers to be holistic. Impression/Plan: Patient is cleared from acute psychiatric services. Recommendation to rescind IVC. She denied SI/HI and these were never presenting concerns. No observed psychosis as was evident when she came to the hospital. Today she is able to have dialogue conversations, thoughts are more organized and linear (not as tangential as they had been), her body language and demeanor appear relaxed and her speech was more normal in rate (not pressured). Overall presentation is not manic like when she first came to the hospital. She has follow up therapy (she requested) at [facility] (09/01/18) at 0900. She was provided with an outpatient MH resource sheet which documented appointment date and time, as well as IFS MCM for crisis/talk therapy/linkage to other supports/services. Consulted with Dr. Salguero regarding the management and care of patient. Attending hospitalist made aware of recommendations.
[2018-08-31 15:09] VITALS: BP 143/71
[2018-08-31] MEDS ORDERED: ONDANSETRON HCL INJ/PF 4 MG/2 ML SDV IV PRN (15:30)
--- NOTE | 2018-08-31 20:22 | PDOC DISCHARGE SUMMARY ---
General - Admit/Disc Date/PCP Admission Date/Primary Care Provider: 08/28/18 02:44 LAURA NAVARRETE MD Discharge Date: 08/31/18 - Additional Information Resuscitation Status: Full Code Discharge Diet: As Tolerated Discharge Activity: Activity As Tolerated Home Medications: Ibuprofen [Motrin 800 mg Tablet] 800 mg PO TID 08/28/18 History of Present Illness History of Present Illness: Patient was admitted after presentation as in HPI below: "BROOKE LOMAS is a 37 year old female who presented to the emergency room via EMS with acute altered mental status. Reports were that the patient had been feeling very tired and not sleeping well recently and was subsequently given 2 sleeping pills that were blue in color by a friend. She took her first 1 of these pills on the late afternoon of the and took her second pill on the ortho assistant of the . Following taking the second pill her pill status rapidly changed and was misinterpreted by EMS as acute psychosis initially, but was determined to be acute delirium after physician evaluation in the emergency room. Patient is delirious and unable to provide any input into her medical care. All information is obtained from the ER staff and other persons in the ER familiar with patient as well as her medical records. In the ER she was found to have no acute abnormalities on CT of the head, hypokalemia at 3.0 was noted as well as an elevated alkaline phosphatase. The remainder of her laboratory evaluation was essentially within normal limits. A lumbar puncture was performed with negative results. Due to the patient's acute delirium of unclear etiology she will be admitted for further evaluation and treatment. A specialized urine toxicology test was ordered and sent by the ER physician supervising ER portion of her care upon the recommendation of poison control." Hospital Course Hospital Course: Patient was admitted to hospitalist service. She was made IVC. She was evaluated by psychiatry who thought this was unspecified psychosis. She was treated with Thorazine and Cogentin. She also subsequently was treated with Haldol as well as recommendation for Zyprexa as needed. Patient has improved markedly. She had hypokalemia that was corrected. She has been reevaluated by psychiatry and has been cleared for discharge. No medication recommended by mental health/psychiatry at this time. Patient to follow-up with psychology as outpatient tomorrow with which she already made plans. She is also to follow-up with her primary care physician within 1 week. Physical Exam Vital Signs: Temp Pulse Resp BP Pulse Ox 98.5 F 82 17 143/71 H 97 08/31/18 15:07 08/31/18 15:07 08/31/18 15:07 08/31/18 15:07 08/31/18 15:07 Intake & Output 08/30/18 08/31/18 09/01/18 06:59 06:59 06:59 Intake Total 1358 1758 Output Total 2400 3000 Balance -1042 -1242 Weight 82 kg 82.2 kg GENERAL: Well-developed, no acute distress HEENT: Normocephalic/atraumatic NECK supple, no JVD CARDIOVASCULAR: RRR, normal S1-S2 LUNGS: CTA bilaterally ABDOMEN: Soft, NT, NL bowel sounds EXTREMITIES: No edema, clubbing, cyanosis NEUROLOGICAL: Alert, oriented x 3, nonfocal Results Laboratory Results: 08/31/18 02:54 08/31/18 02:54 08/31/18 08/31/18 02:54 02:54 WBC 7.0 RBC 4.91 Hgb 14.4 Hct 41.7 MCV 85 MCH 29.3 MCHC 34.5 RDW 14.4 H Plt Count 260 Seg Neutrophils % 57.4 Lymphocytes % 28.6 Monocytes % 10.3 Eosinophils % 3.0 Basophils % 0.7 Absolute Neutrophils 4.0 Absolute Lymphocytes 2.0 Absolute Monocytes 0.7 Absolute Eosinophils 0.2 Absolute Basophils 0.0 Sodium 140.4 Potassium 4.3 D Chloride 102 Carbon Dioxide 26 Anion Gap 12 BUN 6 L Creatinine 0.62 Est GFR ( Amer) > 60 Est GFR (Non-Af Amer) > 60 Glucose 103 Calcium 9.8 Magnesium 2.2 Total Bilirubin 0.5 AST 18 ALT 25 Alkaline Phosphatase 70 Total Protein 7.5 Albumin 4.2 08/28/18 02:17 Cerebral Spinal Fluid - Tube 3 (Csf) Gram Stain - Final 08/28/18 02:17 Cerebral Spinal Fluid - Tube 3 (Csf) CSF Culture - Final NO GROWTH 3 DAYS 08/27/18 08/28/18 08/28/18 22:10 03:05 03:05 Creatine Kinase 406 H 428 H CK-MB (CK-2) 2.30 Troponin I < 0.012 08/28/18 08/28/18 08/28/18 11:25 11:25 18:15 Creatine Kinase 394 H 348 H CK-MB (CK-2) 2.01 Troponin I < 0.012 08/28/18 18:15 Creatine Kinase CK-MB (CK-2) 1.75 Troponin I < 0.012 Impressions: Head CT 08/27/18 22:36 IMPRESSION: Nonspecific vague area of diminished attenuation in the high right parietal region. This could reflect sequelae of old vascular insult/infarct. Neoplastic etiology felt less likely. Consider follow-up with MRI. TECHNICAL DOCUMENTATION: Quality ID # [id number]: Final reports with documentation of one or more dose reduction techniques (e.g., Automated exposure control, adjustment of the mA and/or kV according to patient size, use of iterative reconstruction technique) copyright 2011 [employer]- All Rights Reserved Qualifiers - * PATIENT BEING DISCHARGED WITH ANY OF THE FOLLOWING DIAGNOSIS: No
[2018-09-02 11:13] LABS: CANNABINOID CONFIRMATION UR Positive (.)
== END 2018-08-31 15:34 | disposition home or self-care (01) | DRG 885 ==
LOC: ER 12:14 → EH 08-28 02:44 → 5 08-28 20:19
PROVIDERS: ADMIT Emergency Medicine; ATTEND Emergency Medicine
PROC: 009U3ZX Drainage of Spinal Canal, Percutaneous Approach, Diagnostic (ICD-10-PCS; principal; 2018-08-28)
DX: F29 Unspecified psychosis not due to a substance or known physiological condition (principal); E86.0 Dehydration; R00.0 Tachycardia, unspecified; E87.6 Hypokalemia; R74.8 Abnormal levels of other serum enzymes; I10 Essential (primary) hypertension; Z78.1 Physical restraint status
CPT/HCPCS: 36415; 51701; 70450; 80048; 80053; 80061; 80307; 80349; 81001; 82140; 82550; 82553; 82945; 83735; 84157; 84439; 84443; 84481; 84484; 84703; 85025; 87070; 87205; 89050; 93005; 93010; 96361; 96365; 96366; 96372; 96375; 99153; 99285; 99152; G0480; J0515; J1644; J2060; J3230; J3480; J3490; J7030; J7120